=== PATIENT | female | born 1990 | race Two or more races ===

== ENCOUNTER 2018-08-23 15:27 | Emergency (ER) | payer BC ==
[~2018-08-23] VITALS: Ht 160 cm; Wt 49.4 kg
[2018-08-23 15:56] LABS: *BILIRUBIN,URIN NEGATIVE (NEGATIVE); *CLARITY,URINE CLOUDY (CLEAR); *COLOR,URINE YELLOW (YELLOW); *KETONES,URINE NEGATIVE (NEGATIVE); *UROBILINOGEN,URINE 0.2 E.U./dl (NORMAL); LEUKOCYTE ESTERASE ,URINE NEGATIVE (NEGATIVE); NITRITE, URINE NEGATIVE (NEGATIVE); PH,URINE 7.5 (5.0-8.0); UGLUCOSE NEGATIVE (NEGATIVE)
[2018-08-23 15:57] LABS: *URINE HCG, QUAL POSITIVE (NEGATIVE)
[2018-08-23 15:58] LABS: *BLOOD, URINE TRACE (NEGATIVE)
[2018-08-23 16:05] LABS: BACTERIA,URINE MODERATE /HPF (NONE SEEN); SQUAMOUS EPITHELIAL CELL,UR MODERATE /HPF (NONE SEEN); URINE AMORPHOUS PHOSPHATES MANY /HPF; WBC,URINE 0-3 /HPF (0-3)
--- NOTE | 2018-08-23 16:52 | NUR ---
Patient discharged to home in stable conditon & steady gait. Written and verbal after care instructions given to patient and family. Patient and family verbalized understanding & compliance of instructions.
== END 2018-08-23 16:54 | disposition home or self-care (01) ==
LOC: ER 15:31
DX: O26.891 Other specified pregnancy related conditions, first trimester (principal); R10.2 Pelvic and perineal pain; Z3A.01 Less than 8 weeks gestation of pregnancy
CPT/HCPCS: 76856; 84703; 87086; A4663